=== PATIENT | female | born 1940 | race Caucasian/White ===

== ENCOUNTER 2016-11-26 08:35 | Inpatient (IN) | payer MEDICARE, OTHER ==
--- NOTE | ~2016-11-26 | DS ---
Discharge Summary [facility] [address] [facility] [place] [address] NAME: SIMRAN SARAVIA : 42 STATUS : DIS IN PAT#: [id number] AGE: 76 ADM/REG DATE : 11/26/16 MR#: [id number] REPORT SERV DATE: 11/29/16 DICTATED BY: DATE: REPORT STATUS : Draft TRANSCRIBED BY: MODL DATE: 11/28/16 ADMISSION DATE: 11/26/2016 DISCHARGE DATE: 11/28/2016 [facility] CONSULTANTS: Dr. Davina Medina of Gastroenterology. DISCHARGE DIAGNOSES: 1. Acute uncomplicated diverticulitis - to complete 14 days of antibiotics as an outpatient, and to follow up at the GI clinic in four weeks, for colonoscopy in six to eight weeks. 2. Hematochezia - suspect due to diverticulitis. For outpatient followup as above. 3. Mild anemia - discharge hemoglobin 10.0. 4. Acute kidney injury - admission creatinine of 1.9, discharge creatinine 1.2. 5. Chronic kidney disease, stage II. 6. Insulin-dependent diabetes mellitus type 2 - with history of nocturnal hypoglycemia. 7. Hypertension. 8. Mild cognitive impairment. 9. Documented history of Parkinson disease. 10.History of sinus node dysfunction, status post recent pacemaker placement. 11.Major depression. IMAGIN. PA lateral chest x-ray 11/26/2016, no acute cardiopulmonary process. 2. CT abdomen and pelvis without contrast, 11/26/2016, uncomplicated sigmoid diverticulitis. PERTINENT LABS: White blood cell count at admission 13.3, 11.5 at discharge. Hemoglobin at admission 12.1, 10 at discharge. Normal platelet count. Normal coagulation studies. Admission creatinine 1.98, 1.2 at discharge. Glucose values ranging from 70 to 215. Normal liver enzymes. Normal lipase. Normal troponin. Urinalysis with small leukocyte esterase and rare bacteria. Subsequent culture with 5000 colony-forming units of diphtheroids and mixed contaminants. Blood cultures x2 negative. BRIEF HISTORY: For full details, please see the previously dictated history of present illness by Dr. Micheline Martinez. This is a 76-year-old white female, who was brought by family to the emergency department with abdominal pain, nausea, bright red blood by rectum x2. She was found to have leukocytosis in the emergency department, and a CT abdomen and pelvis was obtained showing uncomplicated sigmoid diverticulitis. She was referred to the Hospitalist Service for admission. HOSPITAL COURSE: The patient was placed on clear liquids and IV Zosyn. Blood cultures were obtained and were negative. She did have a bowel movement during the admission, but it was formed and stool studies were not performed. GI was consulted regarding her hematochezia. The patient has not had a past colonoscopy. Dr. Davina Medina saw the patient and Discharge Summary [address] [address] NAME: SIMRAN SARAVIA : 42 STATUS : DIS IN PAT#: [id number] AGE: 76 ADM/REG DATE : 11/26/16 MR#: [id number] REPORT SERV DATE: 11/29/16 DICTATED BY: DATE: REPORT STATUS : Draft TRANSCRIBED BY: MODL DATE: 11/28/16 recommended to complete 14 days of antibiotics for sigmoid diverticulitis and to follow up outpatient for colonoscopy. The patient had no recurrence of hematochezia while in the hospital and her hemoglobin remained stable at 10.0. She also remained hemodynamically stable with systolic blood pressures from 130 to 150 and did not require transfusion this admission. The patient's lisinopril and diuretic were held at admission because she did demonstrate acute kidney injury on chronic kidney disease, stage II. Her creatinine normalized by the time of discharge to 1.2, and she was resumed on her home antihypertensives and diuretic at discharge. The patient's other medical issues were stable this admission. She was managed with non- pharmacologic DVT prophylaxis due to the history of hematochezia preceding admission. DISCHARGE DISPOSITION: To home in the care of supportive family with no specific activity restrictions. She should adhere to a diabetic diet for comorbid conditions. She should follow up with primary care provider and Cardiology as previously scheduled and will follow up with Dr. Davina Medina in the GI Clinic in four weeks for colonoscopy in six to eight weeks. DISCHARGE MEDICATIONS: 1. Aricept 10 mg p.o. at bedtime. 2. Prozac 40 mg p.o. daily. 3. Lantus 20 units subcu at bedtime. 4. Ativan 0.25 mg p.o. three times daily. 5. Namenda XR 28 mg p.o. daily. 6. Prilosec 20 mg p.o. twice a day. 7. Furosemide 60 mg p.o. daily. 8. Hair, Skin, and Nails one tablet p.o. daily. 9. Prinivil 10 mg p.o. daily. 10.Potassium 10 mEq p.o. twice a day. 11.Levaquin 750 mg p.o. daily for 12 days. 12.Flagyl 500 mg p.o. q.8 hours for 12 days. 30 minutes was spent in completion of the discharge. AKS/MODL Sina Desai M.D. / [id number] CC: Discharge Summary [address] [address] NAME: SIMRAN SARAVIA : 42 STATUS : DIS IN PAT#: [id number] AGE: 76 ADM/REG DATE : 11/26/16 MR#: [id number] REPORT SERV DATE: 11/29/16 DICTATED BY: DATE: REPORT STATUS : Draft TRANSCRIBED BY: MODL DATE: 11/28/16 Sina Desai M.D. Ngozi Badillo M.D. MD Santana Beckford MD
--- NOTE | ~2016-11-26 | HP ---
History And Physical [place] [id number] [facility] [place]. [address] NAME: SIMRAN SARAVIA : 42 STATUS : ADM Jorge PAT#: [id number] AGE: 76 ADM/REG DATE : 11/26/16 MR#: [id number] REPORT SERV DATE: 11/26/16 DICTATED BY: GENEVIEVE AWAD DATE: 11/26/16 REPORT STATUS : Draft TRANSCRIBED BY: PAUL DATE: 11/26/16 DATE OF ADMISSION: 11/26/2016 CHIEF COMPLAINT: Abdominal pain. HISTORY OF PRESENT ILLNESS: The patient is a very pleasant 76-year-old white female. She reports yesterday she developed lower abdominal pain and nausea. She did not vomit, the pain continued, she did not have diarrhea, she had some chills last evening. 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 She then had a second stool with blood and she presented to the ER. She has never had a colonoscopy. She has never had an episode of diverticulitis, she states. She has not had any cough, any chest pain, or any urinary symptoms. Otherwise she has felt well and this just started yesterday. PAST MEDICAL HISTORY: 1. CKD with baseline creatinine around 1.5-1.9. 2. Sick sinus syndrome with history of pacer. 3. Chronic fatigue. 4. Hypertension. 5. Dementia. 6. Depression. 7. Diabetes mellitus. PAST SURGICAL HISTORY: She has had a tubal ligation and a pacemaker placement. SOCIAL HISTORY: She is a previous tobacco user, but she quit in her teens. She does not use alcohol. She is . Lives with her . ALLERGIES: NO KNOWN DRUG ALLERGIES. HOME MEDICATIONS: Reviewed and attached. REVIEW OF SYSTEMS: Full 10-point review of systems obtained. Pertinent positives mentioned in the HPI. PHYSICAL EXAMINATION: VITAL SIGNS: BP 169/54, sats 96%, temperature 98.2, pulse 71, respiratory rate 16. GENERAL: A well-developed white female, in no apparent distress. HEENT: Normocephalic, atraumatic. Throat is clear. NECK: Supple. HEART: Regular rate and rhythm. LUNGS: Grossly clear. ABDOMEN: Soft. She has bowel sounds present. She is tender in bilateral lower quadrants, left greater than right. EXTREMITIES: Warm and dry. Skin is intact. She has no peripheral edema. Pulses are 2+ at the feet. History And Physical [address] [place]. [address] NAME: SIMRAN SARAVIA : 42 STATUS : ADM Jorge PAT#: [id number] AGE: 76 ADM/REG DATE : 11/26/16 MR#: [id number] REPORT SERV DATE: 11/26/16 DICTATED BY: GENEVIEVE AWAD DATE: 11/26/16 REPORT STATUS : Draft TRANSCRIBED BY: PAUL DATE: 11/26/16 PSYCH: She is alert. She is oriented to person, place, and time. Her mood and affect are appropriate. LAB AND X-RAY STUDIES: CT of the abdomen and pelvis shows thickening of the sigmoid colonic wall with mild soft tissue stranding in a pattern of diverticulitis, but there is no focal fluid collection or abscess. Hemoglobin and hematocrit 12 and 35, white count is 13, platelets 194. Urinalysis is negative. Chest x-ray is negative. Basic metabolic panel: Sodium 137, potassium 4.1, chloride 101, CO2 29, BUN and creatinine are 29 and 1.98, glucose is 215. LFTs are normal. Troponin is negative. ASSESSMENT/PLAN: 1. Acute uncomplicated diverticulitis. We will place her on clear liquids. Provide IV Zosyn. Culture blood. Send off some stool studies. Allow bowel rest. 2. Hematochezia, not typical for diverticulitis, but certainly you can have some bleeding. I think given that she has had what she describes as a fairly significant amount of blood now x2. We will have GI see her in consultation. If her hemoglobin remains stable and her clinical picture improves, I suspect she could have a colonoscopy as an outpatient. We will do serial hemoglobin and hematocrit, type and cross, and treat diverticulitis. 3. History of chronic kidney disease. Creatinine is up a bit at 1.9. I am going to hydrate her aggressively and give her clear liquids. Treat her diverticulitis. Hold her antihypertensive, Cozaar. 4. Sick sinus syndrome with history of pacer. 5. History of dementia. Continue home medications. 6. Diabetes mellitus. We will add some sliding scale. 7. Deep venous thrombosis prophylaxis. Hold off since she had GI bleeding. 8. Disposition pending above aforementioned plan and workup. JANIE/PAUL Genevieve Awad M.D. / [id number] CC: Ngozi Tenorio M.D.
--- NOTE | ~2016-11-26 | CN ---
Consultation Report [facility] [address] [place]. [address] NAME: SIMRAN SARAVIA : 42 STATUS : ADM IN [facility]#: [id number] AGE: 76 ADM/REG DATE : 11/26/16 MR#: [id number] REPORT SERV DATE: 11/27/16 DICTATED BY: CHERIE MEDINA DATE: 11/27/16 REPORT STATUS : Draft TRANSCRIBED BY: MODL DATE: 11/27/16 GI CONSULTATION NOTE DATE OF CONSULTATION: 11/26/2016 REASON FOR CONSULTATION: Abdominal pain, nausea, and diverticulitis. HISTORY OF PRESENT ILLNESS: Ms. Saravia is a 76-year-old white female who initially presented to [facility] earlier today with abdominal pain, nausea, without any emesis and no diarrhea. She does admit to some blood with wiping. She had a CT scan performed on admission, which showed some thickening and stranding in the sigmoid colon. Stool cultures were drawn and they are pending at this time. She has been started on empiric antibiotic therapy for possible diverticulitis. She has had no previous colonoscopy. White count is 13.3, H and H are stable at 12.1 and 36.1. PAST MEDICAL HISTORY: Chronic kidney disease, sick sinus syndrome, chronic fatigue, hypertension, dementia, diabetes, depression. PAST SURGICAL HISTORY: Pacemaker placement, tubal ligation. SOCIAL HISTORY: Former tobacco use. Denies any alcohol or drug use. MEDICATIONS: Reviewed. No known drug allergies. PHYSICAL EXAMINATION: VITAL SIGNS: The patient is afebrile. Vital signs are stable. GENERAL: The patient is awake, alert, and oriented x3. Well developed, well nourished, in no acute distress. Hard of hearing. HEENT: Atraumatic, normocephalic. Anicteric. Mucous membranes moist. CARDIAC: S1, S2. CHEST: Clear. ABDOMEN: Soft. Tender to palpation, both left and right colon, without any rebound or guarding. Bowel sounds normoactive. LABORATORY DATA: WBC 13.3, hemoglobin 12.1, hematocrit 36.1, platelets 194. Sodium 137, potassium 4.1, chloride 101, bicarb 29, BUN 29, creatinine 0.98, glucose 215. INR is 1.1 from 09/2016. Liver enzymes normal. Lipase normal. CT scan as described above. IMPRESSION AND PLAN: Non-complicated sigmoid diverticulitis. Continue supportive care and continue antibiotic therapy. I discussed with the patient indications for outpatient colonoscopy in six to eight weeks unless she has continued bleeding and/or dropped her hemoglobin/hematocrit. I will prepare for colonoscopy in six to eight weeks to evaluate for mucosal healing, extensive diverticular disease, and any risks factors which may precipitate patient at high risk of diverticulitis no Consultation Report [place] [id number] [facility] [address] [place] [id number] NAME: SIMRAN SARAVIA : 42 STATUS : ADM IN [facility]#: [id number] AGE: 76 ADM/REG DATE : 11/26/16 MR#: [id number] REPORT SERV DATE: 11/27/16 DICTATED BY: CHERIE MEDINA DATE: 11/27/16 REPORT STATUS : Draft TRANSCRIBED BY: APUL DATE: 11/27/16 colonoscopy had been performed previously. Please call with any questions or concerns. JACOB/PAUL Cherie Medina MD / [id number] CC: Sina Desai M.D.
[2016-11-26 08:04] LABS: BASOPHILS 0.2 %; BASOPHILS ABSOLUTE 0.03 10/3/uL (0.0-0.16); EOSINOPHILS 0.5 %; EOSINOPHILS ABSOLUTE 0.07 10/3/uL (0.0-0.53); ER CBC TAT 0 Hrs 03 Mins; HEMATOCRIT 35.4 % (36.0-48.0); HEMOGLOBIN 12.1 g/dL (12.0-16.0); IMMATURE GRANULOCYTES 0.3 %; IMMATURE GRANULOCYTES ABSOLUTE 0.04 10/3/uL (0.0-0.11); LYMPHOCYTES 8.9 %; LYMPHOCYTES ABSOLUTE 1.19 10/3/uL (0.67-4.30); MANUAL DIFF NO %; MEAN CORPUS HGB CONC 34.2 g/dL (32.0-36.0); MEAN CORPUSCULAR HEMOGLOB 31.3 pg (26.0-34.0); MEAN CORPUSCULAR VOLUME 91.7 fL (80-100); MEAN PLATELET VOLUME 11.4 fL (9.2-13.0); MONOCYTES 8.9 %; MONOCYTES ABSOLUTE 1.19 10/3/uL (0.21-1.20); NEUTROPHILS 81.2 %; PLATELET COUNT 194 10/3/uL (150-400); RBC DISTRIBUTION WIDTH 12.5 % (12.0-16.0); RED CELL COUNT 3.86 10/6/uL (4.0-5.6); WHITE BLOOD CELLS 13.3 10/3/uL (4.5-10.5)
[2016-11-26 08:23] LABS: ALBUMIN 3.5 G/DL (3.5-5.0); ALKALINE PHOSPHATASE 86 U/L (45-117); BUN (BLOOD UREA NITROGEN) 29 MG/DL (6-23); CALCIUM, SERUM 8.9 MG/DL (8.5-10.4); CHLORIDE, SERUM 101 MMOL/L (96-112); CO2 (CARBON DIOXIDE) 29 MMOL/L (24-34); CREATININE 1.98 MG/DL (0.55-1.02); GFR AFRICAN AMERICAN 28 ML/MIN (>=60); GFR NON AFRICAN AMERICAN 24 ML/MIN (>=60); GLOBULIN 3.5 G/DL (2.5-4.1); POTASSIUM, SERUM 4.1 MMOL/L (3.5-5.3); SGPT(ALT) 16 U/L (5-65); TOTAL BILIRUBIN 0.4 MG/DL (0-1.2); TROPONIN I <0.02 NG/ML (<0.05)
[2016-11-26 08:24] LABS: GLUCOSE, SERUM 215 MG/DL (60-99); SGOT(AST) 23 U/L (5-40); SODIUM, SERUM 137 MMOL/L (135-148)
[~2016-11-26 08:35] MED LIST: ARICEPT10 PO; ATV.5 PO; KLOR-CON 1010 MEQ PO; L20 PO; LANTUS SC; NAMENXR28 PO; OMEGA XL PO; PRILO PO; PROZAC40 MG PO; ULTRAM50 PO
[2016-11-26 08:53] LABS: ASCORBIC ACID (UR NOT ORDER) NEG (NEG); BILIRUBIN, URINE NEGATIVE (NEG); KETONE, URINE NEGATIVE (NEG); LEUKOCYTE ESTERASE(NOT OR SMALL (NEG); NITRITE (URINE) NEG (NEG); WBC (NOT ORDERED) (RFLEX) 5 (0-5)
[2016-11-26] MEDS ORDERED: HAIR/SKIN/NAILS PO (09:39)
[2016-11-26] MEDS ORDERED: L20 PO (09:39)
[2016-11-26] MEDS ORDERED: PRIN10 PO (09:39)
[2016-11-26] MEDS ORDERED: PROZAC40 MG PO (09:39)
[2016-11-26] MEDS ORDERED: ATV.5 PO (09:39)
[2016-11-26] MEDS ORDERED: LANTUS SC (09:40)
[2016-11-26] MEDS ORDERED: NAMENXR28 PO (09:40)
[2016-11-26] MEDS ORDERED: ARICEPT10 PO (09:40)
[2016-11-26] MEDS ORDERED: PRILO PO (09:40)
[2016-11-26] MEDS ORDERED: KDUR10 PO (09:40)
[2016-11-26 13:12] LABS: HEMATOCRIT 34.7 % (36.0-48.0); HEMOGLOBIN 11.7 g/dL (12.0-16.0)
[2016-11-26 18:14] LABS: HEMATOCRIT 36.1 % (36.0-48.0); HEMOGLOBIN 12.1 g/dL (12.0-16.0)
[2016-11-27 01:34] LABS: HEMATOCRIT 32.6 % (36.0-48.0); HEMOGLOBIN 10.9 g/dL (12.0-16.0)
[2016-11-27 06:55] LABS: BASOPHILS 0.2 %; BASOPHILS ABSOLUTE 0.03 10/3/uL (0.0-0.16); EOSINOPHILS 1.4 %; EOSINOPHILS ABSOLUTE 0.19 10/3/uL (0.0-0.53); HEMOGLOBIN 11.2 g/dL (12.0-16.0); IMMATURE GRANULOCYTES 0.2 %; IMMATURE GRANULOCYTES ABSOLUTE 0.03 10/3/uL (0.0-0.11); LYMPHOCYTES 17.3 %; LYMPHOCYTES ABSOLUTE 2.39 10/3/uL (0.67-4.30); MEAN CORPUS HGB CONC 32.9 g/dL (32.0-36.0); MEAN CORPUSCULAR HEMOGLOB 31.2 pg (26.0-34.0); MEAN PLATELET VOLUME 11.2 fL (9.2-13.0); MONOCYTES 14.1 %; MONOCYTES ABSOLUTE 1.94 10/3/uL (0.21-1.20); NEUTROPHILS 66.8 %; NEUTROPHILS ABSOLUTE 9.22 10/3/uL (2.02-8.40); PLATELET COUNT 182 10/3/uL (150-400); RBC DISTRIBUTION WIDTH 12.8 % (12.0-16.0); RED CELL COUNT 3.59 10/6/uL (4.0-5.6); WHITE BLOOD CELLS 13.8 10/3/uL (4.5-10.5)
[2016-11-27 06:56] LABS: MANUAL DIFF NO %; MEAN CORPUSCULAR VOLUME 94.7 fL (80-100)
[2016-11-27 07:57] LABS: BUN (BLOOD UREA NITROGEN) 14 MG/DL (6-23); CALCIUM, SERUM 9.1 MG/DL (8.5-10.4); CHLORIDE, SERUM 109 MMOL/L (96-112); CO2 (CARBON DIOXIDE) 25 MMOL/L (24-34); CREATININE 1.36 MG/DL (0.55-1.02); GFR AFRICAN AMERICAN 44 ML/MIN (>=60); GFR NON AFRICAN AMERICAN 38 ML/MIN (>=60); GLUCOSE, SERUM 91 MG/DL (60-99); POTASSIUM, SERUM 4.1 MMOL/L (3.5-5.3); SODIUM, SERUM 142 MMOL/L (135-148)
[2016-11-28 07:06] LABS: BASOPHILS 0.3 %; BASOPHILS ABSOLUTE 0.03 10/3/uL (0.0-0.16); EOSINOPHILS 2.9 %; EOSINOPHILS ABSOLUTE 0.34 10/3/uL (0.0-0.53); IMMATURE GRANULOCYTES 0.3 %; IMMATURE GRANULOCYTES ABSOLUTE 0.03 10/3/uL (0.0-0.11); LYMPHOCYTES 14.3 %; LYMPHOCYTES ABSOLUTE 1.65 10/3/uL (0.67-4.30); MEAN CORPUS HGB CONC 33.9 g/dL (32.0-36.0); MEAN CORPUSCULAR HEMOGLOB 31.7 pg (26.0-34.0); MEAN CORPUSCULAR VOLUME 93.7 fL (80-100); MEAN PLATELET VOLUME 11.1 fL (9.2-13.0); MONOCYTES 9.8 %; MONOCYTES ABSOLUTE 1.13 10/3/uL (0.21-1.20); NEUTROPHILS 72.4 %; NEUTROPHILS ABSOLUTE 8.36 10/3/uL (2.02-8.40); PLATELET COUNT 170 10/3/uL (150-400); RBC DISTRIBUTION WIDTH 12.8 % (12.0-16.0); RED CELL COUNT 3.15 10/6/uL (4.0-5.6); WHITE BLOOD CELLS 11.5 10/3/uL (4.5-10.5)
[2016-11-28 07:07] LABS: HEMATOCRIT 29.5 % (36.0-48.0); MANUAL DIFF NO %
[2016-11-28 07:26] LABS: BUN (BLOOD UREA NITROGEN) 11 MG/DL (6-23); CHLORIDE, SERUM 112 MMOL/L (96-112); CO2 (CARBON DIOXIDE) 26 MMOL/L (24-34); CREATININE 1.19 MG/DL (0.55-1.02); GFR AFRICAN AMERICAN 52 ML/MIN (>=60); GFR NON AFRICAN AMERICAN 45 ML/MIN (>=60); GLUCOSE, SERUM 102 MG/DL (60-99); POTASSIUM, SERUM 3.9 MMOL/L (3.5-5.3); SODIUM, SERUM 143 MMOL/L (135-148)
[2016-11-28] MEDS ORDERED: FLAG500TAB PO (10:24)
[2016-11-28] MEDS ORDERED: LEVAQUIN750 MG PO (10:24)
== END 2016-11-28 14:17 | disposition home health service (06) | DRG 378 ==
LOC: ER 08:35 → 7NO 11:02
PROVIDERS: Hospitalist; Internal Medicine; Physician Assistant
DX: K57.93 Diverticulitis of intestine, part unspecified, without perforation or abscess with bleeding (principal); N17.9 Acute kidney failure, unspecified; E11.22 Type 2 diabetes mellitus with diabetic chronic kidney disease; G20 Parkinson's disease; I49.5 Sick sinus syndrome; I12.9 Hypertensive chronic kidney disease with stage 1 through stage 4 chronic kidney disease, or unspecified chronic kidney disease; F32.9 Major depressive disorder, single episode, unspecified; Z95.0 Presence of cardiac pacemaker; Z98.51 Tubal ligation status; Z87.891 Personal history of nicotine dependence; N18.2 Chronic kidney disease, stage 2 (mild); F02.80 Dementia in other diseases classified elsewhere, unspecified severity, without behavioral disturbance, psychotic disturbance, mood disturbance, and anxiety; D64.9 Anemia, unspecified
CPT/HCPCS: 36415; 71020; 74176; 80048; 80053; 81001; 82962; 83690; 83735; 84484; 85014; 85018; 85025; 86850; 86900; 86901; 87040; 87086; 96374; 99285; A9270-GY; J2405; J2543